=== PATIENT | female | born 1960 | race Caucasian/White ===

== ENCOUNTER 2018-03-04 12:18 | Emergency (ER) | payer MEDICAID, SELFPAY ==
[2018-03-04 12:22] VITALS: BP 159/85; PULSE 99; RESP 16; TEMP 36.6; O2SAT 98
[2018-03-04] MEDS: Ketorolac 15 MG/ML VIAL IVP (12:36)
[2018-03-04] MEDS: Normal Saline 1,000 ML 1000 ML IV (12:37)
[2018-03-04] MEDS: Ondansetron 4 MG/2 ML VIAL IVP (12:37)
--- NOTE | 2018-03-04 12:37 | ED.GENADUL_ITS ---
Discharge Plan Disposition Patient Disposition: HOME Condition: Good Discharge Details Chief Complaint: Abd Prob Clinical Impression: Abdominal pain, Hypokalemia Primary Care Provider: Elayne Mota ED Provider: Jaspreet Liang Home Meds and New Rx's Prescriptions: New ondansetron HCl [Zofran] 4 mg tablet 4 mg PO TID PRN (Reason: nausea and vomiting) 5 Days Qty: 30 RF: 0 Continue simvastatin 20 mg Tablet 20 mg PO QPM RF: 0 lamotrigine 250 mg Tablet Extended Release 24 Hr 250 mg PO ONCE RF: 0 losartan 50 mg Tablet 50 mg PO DAILY RF: 0 lithium carbonate 300 mg Capsule 250 mg PO DAILY RF: 0 Discharge Instructions Instructions: Hypokalemia (ED) Additional Instructions: You need to follow up with your primary care provider next week as scheduled. You should have your potassium rechecked at that time. You also need to inform them of the hepatic cysts and thickened uterus wall as you need follow up imaging Increase your dietary intake of potassium if you have severe worsening pain or persistent vomit return to the emergency department you can take 1000mg tylenol and 600mg ibuprofen every 6 hours for pain as needed Medical Decision Making 57 yo female who has hx of hld, prior tubal ligation, who comes in with right sided abdominal pain. She states it started in the ruq and was intermittent for 3 days and today has been constant and the rlq. Denies fevers or vomit. HAs tenderness without guarding in the rlq and the ruq. Will eval for appendicitis and cholecystitis among other surgical pathology with CT and also eval for hepatitis and pancreatitis pts labs show K of 2.9 otherwise unremarkable, she remains stable, oral replacement ordered, awaiting imaging Imaging shows no acute findings per Dr. Breen, does have some mild inflammatory changes of stomach wall but has no leukocytosis or diarrhea or fevers so do not feel abx indicated. Also has hepatic cysts and thickened endometrium which I told her and she needs to f/u with pcp next week about and have her K rechecked. Return precautions given Differential Diagnosis appendicitis, ovarian cyst, pancreatitis, cholecystitis Imaging Data Radiologic Study: Attestation: I personally reviewed and interpreted this imaging study as follows: Imaging: CT Scan Radiologist's impression: per dr. Breen no significant acute findings, see narraitve in med decision making Lab Data Lab results reviewed: Yes I reviewed the patient's lab results. HPI General Mode of arrival: ambulatory . Date/Time Provider Initiated Documentation: 03/04/18 12:20 . Limitations to Documentation: no limitations . History of Present Illness 57 year old F presents to the emergency department with the chief complaint of abdominal pain, described as moderate, with intensity rated at 6. Quality is described as aching, and is localized to the abdomen. Patient reports no radiation. Patient started experiencing this day(s) (3) and it has been constant. No relieving factors improve symptom(s), No exacerbating factors reported . Patient notes no other symptoms.. Patient did receive the following treatments prior to arrival, none Related Data Home Medications Medication Instructions Recorded Confirmed lamotrigine 250 mg PO ONCE 03/04/18 03/04/18 lithium carbonate 250 mg PO DAILY 03/04/18 03/04/18 losartan 50 mg PO DAILY 03/04/18 03/04/18 ondansetron HCl [Zofran] 4 mg PO TID PRN 5 Days #30 tab 03/04/18 simvastatin 20 mg PO QPM 03/04/18 03/04/18 Previous Rx's Medication Instructions Recorded ondansetron HCl [Zofran] 4 mg PO TID PRN 5 Days #30 tab 03/04/18 Allergies Allergy/AdvReac Type Severity Reaction Status Date / Time No Known Allergies Allergy Unverified 03/04/18 12:25 General Stated Complaint: Abd Prob GRIS: 3 Review of Systems Review of Systems All systems reviewed & are unremarkable except as noted in HPI and below Constitutional Denies chills, Denies fever(s) and Denies weakness ENT Denies change in voice Cardiovascular Denies chest pain and Denies dyspnea Respiratory Denies dyspnea Gastrointestinal Denies vomiting Genitourinary Denies dysuria Musculoskeletal Denies joint swelling Integumentary/Breasts Denies rash Neurologic Denies weakness Psychiatric Denies depression [facility] Social History Smoking/Tobacco Use Status: Current every day Exam Const General: no acute distress Orientation: alert HENMT Head: normal to inspection Ears: external ears normal General nose exam: external nose normal Mouth: moist mucous membranes Eyes General: appearance normal, both eyes and all related structures Neck Neck: normal visual inspection Resp Effort & Inspection: normal respiratory effort and able to speak in complete sentences Cardio Rate: regular rate GI Palpation: soft and tender in the RLQ Skin General skin exam: no rashes or lesions noted Neuro General: alert and oriented x3 Extrem General: normal to inspection Psych Mental Status: mental status grossly normal Course Vital Signs Temperature 36.6 C 03/04/18 12:22 Pulse 99 H 03/04/18 12:22 Respiratory Rate 16 03/04/18 12:22 Blood Pressure 159/85 H 03/04/18 12:22 Pulse Oximetry 98 03/04/18 12:22 Temperature 36.6 C 03/04/18 12:22 Temperature Source Tympanic 03/04/18 12:22 Pulse 99 H 03/04/18 12:22 Respiratory Rate 16 03/04/18 12:22 Respiratory Effort Non-Labored 03/04/18 12:28 Blood Pressure 159/85 H 03/04/18 12:22 Blood Pressure Position Sitting 03/04/18 12:22 Pulse Oximetry 98 03/04/18 12:22 Oxygen Delivery Method Room Air 03/04/18 12:22 Oxygen Flow Rate 0 03/04/18 12:22 Pain Level 5 03/04/18 12:22
[2018-03-04 12:46] LABS: Abs Immature Grans 0.01 k/cumm (0.0-0.09); Absolute Basophil Count 0.02 k/cumm (0.0-0.2); Absolute Eosinophil Count 0.07 k/cumm (0.0-0.7); Absolute Lymphocyte Count 2.88 k/cumm (1.2-3.4); Absolute Monocyte Count 0.51 k/cumm (0.11-0.7); Basophils % 0.3; Eosinophils % 0.9; HCT 40.6 % (36.0-46.0); HGB 13.6 g/dL (12.0-15.5); Immature Grans % 0.1; Mean Corp. HGB Concentration 33.5 g/dL (32.0-36.0); Mean Corpuscular Hemoglobin 31.1 pg (27.0-33.0); Mean Corpuscular Volume 92.7 fL (80-95); Mean Platelet Volume 9.9 fL (8.0-11.0); Monocytes % 6.5; Neutrophils % 55.2; Platelet Count 271 x1000/uL (130-400); RBC 4.38 m/cumm (4.00-5.20); White Blood Cell Count 7.79 k/cumm (4.4-10.8)
--- NOTE | 2018-03-04 12:47 | DI.CT_ITS ---
SYMPTOMS/DIAGNOSIS: RT SIDED ABD PAIN ABDOMINAL AND PELVIC CT: CT examination of the abdomen and pelvis was performed with a bolus infusion of 100 cc's of Omnipaque 350. Images obtained through the lung bases are unremarkable. The liver contains numerous fluid attenuation masses. The largest in the left hepatic lobe measuring roughly 5 cm in greatest diameter and these all have appearance consistent with cysts. The spleen is unremarkable in appearance. No biliary dilatation and the gallbladder is CT normal. There is possible gastric wall thickening in a mostly contracted stomach. Please correlate clinically regarding the possibility of gastritis. Small bowel and colon are unremarkable in appearance. Normal appearance of the appendix. No evidence of diverticulitis. The abdominal aorta and major branches appear normal. The adrenals appear normal bilaterally. The right kidney is unremarkable. No right hydronephrosis or nephrolithiasis. The left kidney contains upper pole calculi which are nonobstructing. No ureteral calcification identified on either side. No abdominal or pelvic adenopathy seen. The [employer] structures appear intact with presumed incidental calcified posterior fibroid. Question endometrial thickening in a postmenopausal patient may be evaluated by pelvic ultrasound. CONCLUSION: 1. Nonobstructing left upper pole renal calculi. 2. Multiple hepatic cysts. 3. Question endometrial thickening in a post menopausal patient, pelvic ultrasound requested for correlation. 4. Question antral gastritis, please correlate clinically.
[2018-03-04 12:52] LABS: ALT 17 U/L (12-78); AST 17 U/L (15-37); Albumin 4.9 g/dL (3.4-5.0); Alkaline Phosphatase 79 U/L (46-116); BUN 17 mg/dL (7-18); Bilirubin, Direct 0.12 mg/dL (0.00-0.20); Bilirubin, Total 0.5 mg/dL (0.2-1.0); CREATININE 0.93 mg/dL (0.55-1.02); Calcium 9.4 mg/dL (8.5-10.1); Chloride 101 mmol/L (98-107); Glucose 90 mg/dL (70-100); Lipase 139 U/L (73-393); Magnesium 2.2 mg/dL (1.8-2.4); PTT Activated 25.3 sec (21.0-31.4); Prothrombin Time 9.8 sec (9.3-10.8); Sodium 141 mmol/L (136-145); Total Protein 8.4 g/dL (6.4-8.2)
[2018-03-04 12:54] LABS: Potassium 2.9 mmol/L (3.5-5.1)
[2018-03-04] MEDS: Omnipaque 350 MG/ML 100 ML BTL IJ (13:49)
[2018-03-04] MEDS: Potassium Chloride 20 MEQ TABCR 40 MEQ PO (14:35)
[2018-03-04 14:44] VITALS: BP 159/85; PULSE 99; RESP 16; TEMP 36.6; O2SAT 98
== END 2018-03-04 14:46 | disposition home or self-care (01) ==
PROVIDERS: Emergency Provider Emergency Medicine; PCP Nurse Practitioner
DX: R10.31 Right lower quadrant pain (principal); E87.6 Hypokalemia
CPT/HCPCS: 36415; 80053; 80076; 83690; 96361; 96374; 96375; 99285; 74177; 83735; 85025; 85610; 85730; 99284; J1885; J2405; J3490

== ENCOUNTER 2018-03-10 12:38 | Outpatient (REF) | payer MEDICAID, SELFPAY ==
[2018-03-10 17:48] LABS: ALT 17 U/L (12-78); AST 16 U/L (15-37); Albumin 4.6 g/dL (3.4-5.0); Alkaline Phosphatase 73 U/L (46-116); Anion Gap 10.1 mmol/L (3-11); BUN 15 mg/dL (7-18); Bilirubin, Total 0.4 mg/dL (0.2-1.0); CO2 28.9 mmol/L (21.0-32.0); CREATININE 0.84 mg/dL (0.55-1.02); Chloride 102 mmol/L (98-107); Glucose 102 mg/dL (70-100); Potassium 3.4 mmol/L (3.5-5.1); Sodium 141 mmol/L (136-145); Total Protein 7.5 g/dL (6.4-8.2)
== END 2018-03-10 12:58 ==
LOC: NCHCN 12:38
PROVIDERS: PCP Nurse Practitioner; Visit Provider Nurse Practitioner
DX: E87.6 Hypokalemia (principal)
CPT/HCPCS: 80053

== ENCOUNTER 2018-03-18 02:38 | Outpatient (CLI) | payer MEDICAID, SELFPAY | END 2018-03-18 02:58 | PROVIDERS: PCP Nurse Practitioner; Visit Provider Nurse Practitioner | DX: R00.2 Palpitations (principal) | CPT/HCPCS: 93225 ==

== ENCOUNTER 2018-03-23 10:56 | Outpatient (CLI) | payer MEDICAID, SELFPAY ==
--- NOTE | 2018-03-23 17:12 | HOLTER_ITS ---
DATE OF DICTATION: March 23, 2018 STUDY INDICATION: Palpitations. REQUESTING PROVIDER: Elaine Upton N.P. FINDINGS: The patient was monitored for 23 hours and 52 minutes. The baseline rhythm was sinus rhythm. Average heart rate 83 bpm, range 60-141 bpm. There were 6 PVC's and 2 PAC's. There was no supraventricular or ventricular tachycardia. There were no pauses greater than 3 seconds. There was no high-degree heart block. There were 3 patient events, none of these events correlated with arrhythmias. FINAL INTERPRETATION: Normal study.
== END 2018-03-23 11:16 ==
PROVIDERS: PCP Nurse Practitioner; Visit Provider Nurse Practitioner
DX: R00.2 Palpitations (principal)
CPT/HCPCS: 93226

== ENCOUNTER 2018-03-31 00:18 | Outpatient (CLI) | payer MEDICAID, SELFPAY ==
--- NOTE | 2018-03-31 13:00 | DI.US_ITS ---
SYMPTOMS/DIAGNOSIS: ENDOMETRIAL THICKENING, R93.89 PELVIC ULTRASOUND: Transabdominal and transvaginal examination. The uterus measures 5.6 cm long x 2.5 cm AP x 3.5 cm transverse. Note is made of a calcified lesion in the posterior body of the uterus, most suggestive of a calcified uterine fibroid. The finding is present on the CT scan of the abdomen and pelvis from 03/04/18. The endometrial stripe is within normal limits at 0.2 cm. There is fluid seen within the endometrial canal. Both ovaries were visualized. They were normal in size and appearance. No free pelvic fluid or hydronephrosis is identified. IMPRESSION: 1. Small amount of fluid seen within the endometrial canal. 2. Calcified uterine fibroid.
== END 2018-03-31 00:38 ==
PROVIDERS: PCP Nurse Practitioner; Visit Provider Nurse Practitioner
DX: R93.89 Abnormal findings on diagnostic imaging of other specified body structures (principal); D25.9 Leiomyoma of uterus, unspecified
CPT/HCPCS: 76830; 76856

== ENCOUNTER 2018-04-05 10:35 | Outpatient (REF) | payer MEDICAID, SELFPAY ==
[2018-04-05 12:17] LABS: Potassium 3.6 mmol/L (3.5-5.1)
== END 2018-04-05 10:55 ==
LOC: NCHCN 10:35
PROVIDERS: PCP Nurse Practitioner; Visit Provider Nurse Practitioner Family
DX: E87.6 Hypokalemia (principal)
CPT/HCPCS: 84132

== ENCOUNTER 2018-05-06 00:27 | Outpatient (CLI) | payer MEDICAID, SELFPAY ==
--- NOTE | 2018-05-06 09:17 | DI.US_ITS ---
SYMPTOM/DIAGNOSIS: RUQ PAIN, R10.11 ABDOMEN ULTRASOUND: Routine examination was performed. The aorta and IVC are unremarkable. The liver is normal in size. There are four simple cysts seen within the liver, the largest is seen in the left lobe and measures 4.6 by 4.9 by 4.1 cm. These were visualized on the CT scan of the abdomen and pelvis from 03/04/18. No solid hepatic masses are seen. The gallbladder, bile ducts, kidneys and spleen are unremarkable. The pancreatic tail was not visualized sonographically. The remainder of the pancreas is unremarkable. There is normal hepatoportal venous flow. IMPRESSION: Multiple hepatic cysts. Otherwise unremarkable abdomen ultrasound.
== END 2018-05-06 00:47 ==
PROVIDERS: PCP Nurse Practitioner; Visit Provider Nurse Practitioner
DX: R10.11 Right upper quadrant pain (principal); K76.89 Other specified diseases of liver
CPT/HCPCS: 76700

== ENCOUNTER 2018-05-13 16:50 | Outpatient (REF) | payer MEDICAID, SELFPAY ==
[2018-05-13 21:49] LABS: Bilirubin Negative (Negative); Blood Small (Negative); Clarity Clear; Glucose Negative (Negative); Ketones Negative (Negative); Leukocyte Esterase Negative (Negative); Nitrite Negative (Negative); Urobilinogen 0.2 EU/dL (Up TO 0.2); pH 6.5 (5-8)
[2018-05-13 22:04] LABS: Bacteria Negative HPF (Negative); C & S Indicated? No; Casts Negative LPF (Negative); Crystals Negative HPF (Negative); Epithelial Cells Few HPF (Negative); Mucus Negative (Negative); WBC Negative HPF (0-5)
== END 2018-05-13 17:10 ==
LOC: NCHCN 16:50
PROVIDERS: PCP Nurse Practitioner; Visit Provider Nurse Practitioner
DX: R31.9 Hematuria, unspecified (principal)
CPT/HCPCS: 81003; 81015

== ENCOUNTER 2018-06-10 09:26 | Day surgery (SDC) | payer MEDICAID, SELFPAY ==
[2018-06-10 09:45] VITALS: BP 148/89; PULSE 105; RESP 20; TEMP 36.7; O2SAT 100
[2018-06-10] MEDS: Lactated Ringers 1,000 ML 80 ML IV (10:06)
--- NOTE | 2018-06-10 11:07 | DI.RAD_ITS ---
SYMPTOMS/DIAGNOSIS: MICROSCOPIC HEMATURIA RETROGRADE IN THE OR: Fluoroscopy Time: 19.8 sec Fluoroscopy was utilized by Dr. Hopkins during the retrograde evaluation of the renal collecting system. Please refer to the procedure report for complete details.
[2018-06-10] MEDS: Lidocaine 2% Jelly 6 ML SYR (11:42)
[2018-06-10] MEDS: Omnipaque 300 MG/ML 50 ML BTL (11:43)
--- NOTE | 2018-06-10 11:59 | W.PM.DSUDISC ---
Discharge Plan Disposition Patient Disposition: HOME Condition: Stable Discharge Details Reason For Visit: microscopic hematuria Attending Provider: Yuriy Hopkins Primary Care Provider: Elaine Upton Home Meds and New Rx's Prescriptions: No Action lamotrigine 300 mg tablet extended release 24hr 300 mg PO DAILY RF: 0 losartan 50 mg tablet 50 mg PO DAILY RF: 0 bisacodyl [Dulcolax (bisacodyl)] 5 mg tablet,delayed release (DR/EC) 5 mg PO ONCE Qty: 4 RF: 0 polyethylene glycol 3350 17 gram/dose powder 238 g PO ONCE Qty: 238 RF: 0 polyethylene glycol 3350 [Miralax] 17 gram/dose powder 17 gm PO DAILY PRNRF: 0 omeprazole 40 mg capsule,delayed release(DR/EC) 40 mg PO DAILY RF: 0 albuterol sulfate [ProAir HFA] 90 mcg/actuation HFA aerosol inhaler 2 puff IH Q6H PRNRF: 0 fluticasone-salmeterol [Advair HFA] 230-21 mcg/actuation HFA aerosol inhaler 2 puff IH BID RF: 0 simvastatin 20 mg Tablet 20 mg PO QPM RF: 0 acetaminophen [Tylenol Extra Strength] 500 mg Tablet 500 mg PO PRN PRNRF: 0 Discharge Instructions Additional Instructions: F/U yearly for urinalysis (can be done at PCP office) Activity:: Activity as Tolerated Diet:: As Tolerated Discharge Orders Discharge Orders: Discharge Order (Routine); Ordered 06/10/18 Ordered By: Yuriy Hopkins
[2018-06-10 12:30] VITALS: BP 134/84; PULSE 82; RESP 18; TEMP 35.4; O2SAT 99
--- NOTE | 2018-06-10 16:34 | ROE_ITS ---
DATE OF OPERATION: June 10, 2018 PREOPERATIVE DIAGNOSIS: Microscopic hematuria. POSTOPERATIVE DIAGNOSIS: Microscopic hematuria. PROCEDURE: Cystoscopy with bilateral retrograde pyelogram. SURGEON: Yuriy Hopkins M.D. ANESTHESIA: General with local. COMPLICATIONS: None. HISTORY: This is a 58-year-old woman who has been identified as having microscopic hematuria. She u nderwent a CT scan with contrast. The CT demonstrated nonobstructing kidney stones on the left. We were not able to visualize the ureters adequately on the CT scan so she presents for cystoscopy and r etrograde pyelogram to complete her hematuria workup. OPERATIVE REPORT: The patient was brought to the Operating Room on 06/10/18. After successful induct ion of general anesthesia, she was placed in the dorsal lithotomy position. Her genitalia was preppe d and draped. Two percent Xylocaine jelly was instilled into the urethra to act as a local anestheti c. A 22 Iranian rigid cystoscope was passed through the urethra into the bladder. The bladder was inspec pankaj with a 30-degree lens. The base of the bladder had descended, consistent with a cystocele. Both ureteral orifices appeared normal. I was unable to cannulate the right ureteral orifice with an access catheter so I passed a G lidewire through the scope into the right ureteral orifice. I was then able to advance the access ca theter over the wire. With the access catheter position in the distal ureter, we injected Omnipaque under fluoroscopic guid ance. This outlined the ureters and collecting system on the right. No persistent filling defects w ere seen. On the left side, I was able to pass the access catheter into the ureteral orifice directly. Again, the left ureter and collecting system appeared normal. Both sides were monitored and drainage films showed both sides emptied appropriately. The remainder of the bladder was then inspected using both 30- and 70-degree lenses. No papillary or nodular lesions were seen. No stones were found within the bladder. Based on today's examination, there is no significant uropathology that would account for her microsc opic hematuria. The current [employer] [employer] recommendation is a yearly urinalysis an d a repeat workup in three to five years if the hematuria persists. cc: Elaine Upton N.P.
== END 2018-06-10 12:44 | disposition home or self-care (01) ==
PROVIDERS: PCP Nurse Practitioner; Visit Provider Urology
PROC: (CPT 74450; principal; 2018-06-10 11:15)
DX: R31.29 Other microscopic hematuria (principal); K21.9 Gastro-esophageal reflux disease without esophagitis; J44.9 Chronic obstructive pulmonary disease, unspecified; F17.210 Nicotine dependence, cigarettes, uncomplicated; I10 Essential (primary) hypertension
CPT/HCPCS: 52005; 74420; J0690; J1885; J2250; J2405; Q9967

== ENCOUNTER 2018-07-09 09:03 | Day surgery (SDC) | payer MEDICARE, MEDICAID, SELFPAY ==
[2018-07-09 09:56] VITALS: BP 138/86; PULSE 89; RESP 18; TEMP 36.6; O2SAT 99
[2018-07-09] MEDS: Lactated Ringers 1,000 ML 80 ML IV ×2 (10:19→11:47)
[2018-07-09] MEDS: Lidocaine 2% Viscous 15 ML CUP (11:35)
--- NOTE | 2018-07-09 11:41 | HPE_ITS ---
Date of service: 07/09/18 Time of Service: 11:30 Assessment and Plan (1) Dysphagia: Current visit: No Status: Acute pt is here today for egd and ce. Informed consent is obtained for the procedural (explained in simple layman's terms that the pt. and/or family could understand) explaining risks vs benefits and alternatives to the procedure and consequences if we do not do the procedure and need/rational for the procedure. Risks include but are not limited to: bleeding, infection, perforation of esophagus, stomach, colon, small intestines, bronchus or trachea, or PTX. This would necessitate emergency surgery to repair the damage w/ possible ostomy; and other associated complications w/ the required surgery. Also complications of anesthesia including aspiration, OH/CVA/. pt tolerated prep and is acceptable risk for anesthesia Qualifiers: Dysphagia type: unspecified Qualified Code(s): R13.10 - Dysphagia, unspecified (2) Encounter for screening colonoscopy: Current visit: No Status: Acute as aboe History of Present Illness Chief Complaint: gerd/ce Consults Consult date: 07/09/18 Narrative: pt has long standing hx of gerd and has been on prilosec for many yrs. she has tried many PPI's and H2 blockers nad they do not work for her. she had taken an OTC antiacid that works. + reflux- no vomiting. poor dentition. she still smokes and she knows this make it worse. she is not taking prilosec. +2 cups coffee per day. +energy drinks throurgh out the day. feel like lump in throat. no abdom pain. tolerated prep. no unexplained wt loss or bleeding. Review of Systems Review of Systems All systems reviewed & are unremarkable except as noted in HPI and below Constitutional Reports as per HPI, Reports system reviewed and no additional complaints, except as docu, Denies anorexia, Denies chills, Denies difficulty sleeping, Denies fatigue, Denies headache(s), Denies lethargy, Denies malaise, Denies poor appetite, Denies weakness, Denies weight gain and Denies weight loss Eyes Reports as per HPI, Reports system reviewed and no additional complaints, except as docu and Denies change in vision ENT Reports system reviewed and no additional complaints, except as docu, Reports as per HPI, Denies change in voice, Denies dental pain, Denies dysphagia, Denies dizziness, Denies facial pain, Denies headache(s) and Denies odynophagia Comments: poor dentiont Cardiovascular Reports as per HPI, Reports system reviewed and no additional complaints, except as docu, Denies chest pain, Denies chest pain with activity, Denies syncope, Denies leg edema and Denies dyspnea Comments: no CP or SOB Respiratory Reports as per HPI, Reports system reviewed and no additional complaints, except as docu, Denies chest congestion, Denies cough, Denies pain with cough and Denies dyspnea Comments: +chronic smokers cough. no wheeze Gastrointestinal Reports as per HPI, Reports system reviewed and no additional complaints, except as docu, Denies abdominal pain, Denies bloating, Denies change in bowel habits, Denies change in stool character, Denies constipation, Denies cramping, Denies dysphagia, Denies early satiety, Denies heartburn, Denies diarrhea, Denies nausea, Denies odynophagia and Denies vomiting Comments: tolerated prep and cl yellow stool Musculoskeletal Reports system reviewed and no additional complaints, except as docu, Reports as per HPI, Denies abnormal gait, Denies arthralgias and Denies muscle weakness Integumentary/Breasts Reports system reviewed and no additional complaints, except as docu, Reports as per HPI, Denies changing lesions, Denies new lesions and Denies jaundice Neurologic Reports system reviewed and no additional complaints, except as docu, Reports as per HPI, Denies abnormal speech, Denies abnormal gait, Denies dizziness, Denies syncope, Denies headache(s), Denies memory loss and Denies weakness Psychiatric Reports system reviewed and no additional complaints, except as docu, Reports as per HPI, Denies change in appetite and Denies memory loss Endocrine Denies fatigue, Denies polydipsia and Denies polyuria Hematologic/Lymphatic Reports system reviewed and no additional complaints, except as docu, Denies easy bleeding and Denies easy bruising Allergic/Immunologic Denies system reviewed and no additional complaints, except as docu, Reports as per HPI and Denies urticaria [facility] Medical History Bipolar 1 disorder (Acute) Dizziness (Acute) Dysphagia (Acute) Endometrial thickening on ultrasound (Acute) Hematuria (Acute) Hepatic cyst (Acute) Hyperlipemia (Acute) Hypokalemia (Acute) Low back pain (Acute) Palpitations (Acute) RUQ pain (Acute) Restless legs (Acute) Scoliosis (Acute) COPD (chronic obstructive pulmonary disease) (Chronic) GERD (gastroesophageal reflux disease) (Chronic) Hypertension (Chronic) Metabolic syndrome X (Chronic) Post traumatic stress disorder (Chronic) Tobacco use (Chronic) Surgical History Hx of cystoscopy (Acute) Social History Smoking/Tobacco Use Status: Current every day Alcohol Intake: former Drug use: Occasionally Substance use type: marijuana Do you feel safe in your relationship?: Yes Meds Home Medications Medication Instructions Recorded Confirmed Type simvastatin 20 mg PO QPM 03/04/18 07/09/18 History albuterol sulfate HFA 90 2 puff IH Q6H PRN 03/24/18 06/29/18 History mcg/actuation aerosol inhaler fluticasone propionate-salmeterol 2 puff IH BID 03/24/18 07/09/18 History 230 mcg-21 mcg/actuation HFA inhaler omeprazole 40 mg capsule,delayed 40 mg PO DAILY 05/19/18 07/09/18 History release polyethylene glycol 3350 17 17 gm PO DAILY PRN 05/19/18 06/29/18 History gram/dose oral powder bisacodyl 5 mg tablet,delayed 5 mg PO ONCE #4 tab 06/04/18 06/04/18 Rx release lamotrigine ER 300 mg 300 mg PO DAILY 06/04/18 07/09/18 History tablet,extended release 24 hr losartan 50 mg tablet 50 mg PO DAILY 06/04/18 07/09/18 History polyethylene glycol 3350 17 238 g PO ONCE #238 gm 06/04/18 06/04/18 Rx gram/dose oral powder acetaminophen [Tylenol Extra 500 mg PO PRN PRN 06/10/18 07/09/18 History Strength] Allergies Allergy/AdvReac Type Severity Reaction Status Date / Time No Known Allergies Allergy Verified 07/09/18 09:50 Exam Const General: cooperative, healthy appearing, comfortable, no acute distress, well developed and well groomed Nutritional Appearance: average body habitus and well nourished Orientation: alert, awake and oriented x3 HENMT Head: normal to inspection, normocephalic and atraumatic Ears: hearing grossly normal bilaterally and external ears normal General nose exam: external nose normal Face and sinus: normal facial exam and sinuses nontender Mouth: oral mucosae normal, lip normal, tongue normal and moist mucous membranes Teeth and gingiva: poor dentition Eyes General: appearance normal, both eyes and all related structures Conjunctivae: conjunctivae normal Sclera: sclerae normal Pupils: PERRL Neck Neck: normal visual inspection and full ROM Chest Chest: normal inspection of the chest Resp Effort & Inspection: normal respiratory effort, able to speak in complete sentences, no cough, no nasal flaring, not tachypneic and no use of accessory muscles Auscultation: clear to auscultation bilaterally, no rales, no rhonchi and no wheezes Cardio Jugular venous pressure: no JVD Rate: regular rate Rhythm: regular rhythm GI Inspection: normal to inspection, no edema and non-distended Palpation: soft, no masses, nontender and No ascites Auscultation: normal bowel sounds Other: post sx changes noted Skin General skin exam: no rashes or lesions noted Trauma: no lacerations or abrasions Neuro General: alert, oriented x3, oriented, gait normal, moves all extremities, no focal motor deficits and CN's II-XI intact bilaterally Cognition: normal cognition Speech: speech normal Gait: normal gait Motor: muscle tone normal throughout Extrem General: normal to inspection, full ROM and no clubbing, cyanosis or edema Psych Appearance: grossly normal and well kempt Mental Status: mental status grossly normal Speech and Movement: speech and movement normal Affect: normal affect Results Last Vital Signs Temp 36.6 C 07/09/18 09:56 Pulse 89 07/09/18 09:56 Resp 18 07/09/18 09:56 BP 138/86 07/09/18 09:56 Pulse Ox 99 07/09/18 09:56
--- NOTE | 2018-07-09 11:50 | STOM_PTH ---
PATIENT: Kacey Field LOC: HIRAL U#:[id number] AGE/SX: 58/F ROOM: RE07/09/[address]: Kanika Jaeger : 1960 BED: DIS: 07/09/2018 SPEC #: [id number] RECD: 07/09/18 15:33 STATUS: CHHAYA RE #: [id number] LINDA: 07/09/18 11:[address]: Kanika Jaeger DEPT: Surgical Specimen RECD BY: Ivy Samuels ENTERED: 07/09/18 15:36 SP TYPE: STOMACH OTHR DR: Elaine Upton Tissues: 1 - BIOPSY BOWEL 2 - STOMACH BIOPSY 3 - STOMACH BIOPSY 4 - ESOPHAGUS BIOPSY 5 - ESOPHAGUS BIOPSY 6 - BIOPSY BOWEL 7 - BIOPSY BOWEL Procedures: GROSS AND MICRO LEVEL 4 Comments: [id number]
[2018-07-09] MEDS: Glycopyrrolate 0.2 MG/1 ML VIAL (12:05)
--- NOTE | 2018-07-09 12:44 | W.PM.ENDDOP ---
Date of service: 07/09/18 Time of Service: 12:44 Endoscopy Report DATE OF PROCEDURE: 07/09/18 PRE-OP DIAGNOSIS: gerd/CRC screen POST-OP DIAGNOSIS: other (nl egd) PROCEDURE: divterc polyps x3 ANESTHESIA: GETA ESTIMATED BLOOD LOSS: 5 COMPLICATIONS: None DISPOSITION: PACU INDICATIONS: med refractory gerd CRC screen PREP: Miralax COLONOSCOPY RETRACTION TIME: 15 mins FINDINGS: as above PROCEDURE DESCRIPTION: After informed consent was obtained the patient was take to the procedure room and placed in a supine position. Monitors were applied and a time out was done. The patients name, date of , procedure type, allergies to medications and metal in their body was reviewed. A bite block was placed and the patient was sedated. Once sedated and comfortable the gastroscope was advanced through the oropharynx which was grossly normal into the esophagus. The proximal and mid-esophagus were nl. In the distal esophagus there was nl. The scope was advanced into the stomach and through the pylorus into the 3rd portion of the duodenum. The duodenum was noted to be nl. Biopsies were done. all specimens were retreived and no bleeding was noted. The scope was retracted back into the stomach and biopsies were done to rule out H. pylori. There were no ulcers. The scope was retroflexed. The cardia and fundus were noted to be normal. There not a hiatal hernia noted. The scope was retracted back into the esophagus and biopsies were done of the GE junction to rule out Olvera's. The Z line was regular. The GE junction was at 38 cm. The scope was removed and the patient was woken up and taken back to [facility] in stable condition. Follow up: 2-3 wks for bx results After informed consent was obtained the patient was taken to the procedure room and placed in a left decubitous position. Monitors were applied and a time out was done. The patients name, date of , procedure, allergies to medications and metal in their body was reviewed. The patient was then sedated. Once sedated and comfortable a rectal exam was done. External exam was normal. Internal exam revealed a normal sphincter tone and no palpable masses. The scope was then introduced and retrofelexed. no internal hemorrhoids were identified. The scope was then advanced to the cecum without difficulty. The TI and appendiceal orifice were identified. The prep was adequate. There was a medium size polyp in cecum. This was removed in mult. bites w/ cold forcepts. All specimen retreived and no bleeding noted. The scope was then slowly retracted over 15 minutes back into the rectum. Polyps were removed at cecumx1. this was a flat polyp about 1cm. removed in mult bites. all specimen retrieved no bleeding noted. There were x2 polyps at 20cm. removed w/ a cold forecept. She has moderate diverticular dx. no active bleeding or infecton. grade I int. hermorrhoids. The scope was removed and the patient was woken up and taken back to [facility] day surgery in stable condition. The patient tolerated the procedure well and there were no immediate complications. Follow up: The patient should follow up in aprox 3 years time- path pd. unless they develop changes in bowel habits or other new gastrointestinal complaints.
--- NOTE | 2018-07-09 12:48 | W.PM.DSUDISC ---
Discharge Plan Disposition Patient Disposition: HOME Condition: Good Discharge Details Reason For Visit: egd and colon Attending Provider: Kanika Jaeger Primary Care Provider: Elaine Upton Home Meds and New Rx's Prescriptions: Continued lamotrigine 300 mg tablet extended release 24hr 300 mg PO DAILY RF: 0 losartan 50 mg tablet 50 mg PO DAILY RF: 0 bisacodyl [Dulcolax (bisacodyl)] 5 mg tablet,delayed release (DR/EC) 5 mg PO ONCE Qty: 4 RF: 0 polyethylene glycol 3350 17 gram/dose powder 238 g PO ONCE Qty: 238 RF: 0 polyethylene glycol 3350 [Miralax] 17 gram/dose powder 17 gm PO DAILY PRNRF: 0 omeprazole 40 mg capsule,delayed release(DR/EC) 40 mg PO DAILY RF: 0 albuterol sulfate [ProAir HFA] 90 mcg/actuation HFA aerosol inhaler 2 puff IH Q6H PRNRF: 0 fluticasone propion-salmeterol [Advair HFA] 230-21 mcg/actuation HFA aerosol inhaler 2 puff IH BID RF: 0 simvastatin 20 mg Tablet 20 mg PO QPM RF: 0 acetaminophen [Tylenol Extra Strength] 500 mg Tablet 500 mg PO PRN PRNRF: 0 Discharge Instructions Additional Instructions: Findings:egd- normal biopsy taken colon: polyps x3 diverticula Follow up: 2-3 wks Please call if you develop: fevers >101.5 Nausea or Vomiting Abdominal pain that is not transient DAY SURGERY UNIT POST COLONOSCOPY INSTRUCTIONS 1. Because there will be medication in your system for the next 24 hours, you may feel a little sleepy. Your coordination will be affected. Therefore: a. Do not drive or operate dangerous equipment for 24 hours. b. Do not drink alcohol beverages for 24 hours (not even beer). c. Plan to go home and rest for the day. 2. Generally there are no restrictions on your activity after a day or so has gone by, but you may feel a bit fatigued for a few days. 3 After you arrive home you may have a light meal and return to a normal diet as you can tolerate it without feeling sick to your stomach. 4. After surgery, you may feel pain or discomfort. This should be only transient, but if it persists please contact your doctor. 5. If there are any questions regarding the findings of your procedure, please feel free to contact your doctor. 6. If you are unable to contact your doctor with a problem, contact the hospital at [phone]. 7. Continue all your regular medications unless directed otherwise. I understand the above instructions and have no questions. Signature of Patient or Responsible Adult Escort Date/Time Name of Responsible Adult Escort Signature of Nurse Date/Time Activity:: no heavy lifting or strenuous acitivity x 24 hrs Diet:: low fiber x 3 days. Than transition to high fiber diet DS: Diagnosis Discharge Diagnosis (1) Dysphagia: Status: Acute (2) Encounter for screening colonoscopy: Status: Acute
[2018-07-09 13:20] VITALS: BP 155/85; PULSE 103; RESP 18; TEMP 36.8; O2SAT 98
== END 2018-07-09 13:50 | disposition home or self-care (01) ==
PROVIDERS: PCP Nurse Practitioner; Visit Provider Surgery
PROC: (CPT 45380; principal; 2018-07-09 10:30)
DX: Z12.11 Encounter for screening for malignant neoplasm of colon (principal); D12.0 Benign neoplasm of cecum; K63.5 Polyp of colon; K57.30 Diverticulosis of large intestine without perforation or abscess without bleeding; K21.9 Gastro-esophageal reflux disease without esophagitis; K21.0 Gastro-esophageal reflux disease with esophagitis; K31.89 Other diseases of stomach and duodenum; J44.9 Chronic obstructive pulmonary disease, unspecified; I10 Essential (primary) hypertension
CPT/HCPCS: 45380; 43239; 88305; NC

== ENCOUNTER 2018-07-10 07:29 | Emergency (ER) | payer MEDICARE, MEDICAID, SELFPAY ==
[2018-07-10] VITALS (39 sets, daily range): BP systolic 126–151; BP diastolic 62–109; PULSE 67–102; RESP 6–28; TEMP 36.7; O2SAT 96–100
[2018-07-10 08:47] LABS: Abs Immature Grans 0.01 k/cumm (0.0-0.09); Absolute Basophil Count 0.01 k/cumm (0.0-0.2); Absolute Eosinophil Count 0.08 k/cumm (0.0-0.7); Absolute Lymphocyte Count 1.77 k/cumm (1.2-3.4); Absolute Monocyte Count 0.53 k/cumm (0.11-0.7); Basophils % 0.1; Eosinophils % 0.9; HCT 35.8 % (36.0-46.0); HGB 12.5 g/dL (12.0-15.5); Immature Grans % 0.1; Lymphocytes % 20.1; Mean Corp. HGB Concentration 34.9 g/dL (32.0-36.0); Mean Corpuscular Hemoglobin 29.7 pg (27.0-33.0); Mean Platelet Volume 9.7 fL (8.0-11.0); Neutrophils % 72.8; Platelet Count 285 x1000/uL (130-400); RBC 4.21 m/cumm (4.00-5.20); RBC Distribution Width 12.8 % (11.7-14.6)
--- NOTE | 2018-07-10 08:56 | ED.GENADUL_ITS ---
Discharge Plan Disposition Patient Disposition: HOME Condition: Improving Discharge Details Chief Complaint: GI Bleed Clinical Impression: Rectal bleeding, S/P colonoscopic polypectomy, Hypokalemia Primary Care Provider: Elaine Upton ED Provider: Tg Aguirre Home Meds and New Rx's Prescriptions: Continued lamotrigine 300 mg tablet extended release 24hr 300 mg PO DAILY RF: 0 losartan 50 mg tablet 50 mg PO DAILY RF: 0 bisacodyl [Dulcolax (bisacodyl)] 5 mg tablet,delayed release (DR/EC) 5 mg PO ONCE Qty: 4 RF: 0 polyethylene glycol 3350 17 gram/dose powder 238 g PO ONCE Qty: 238 RF: 0 polyethylene glycol 3350 [Miralax] 17 gram/dose powder 17 gm PO DAILY PRNRF: 0 omeprazole 40 mg capsule,delayed release(DR/EC) 40 mg PO DAILY RF: 0 albuterol sulfate [ProAir HFA] 90 mcg/actuation HFA aerosol inhaler 2 puff IH Q6H PRNRF: 0 fluticasone propion-salmeterol [Advair HFA] 230-21 mcg/actuation HFA aerosol inhaler 2 puff IH BID RF: 0 simvastatin 20 mg Tablet 20 mg PO QPM RF: 0 acetaminophen [Tylenol Extra Strength] 500 mg Tablet 500 mg PO PRN PRNRF: 0 Discharge Instructions Instructions: Rectal Bleeding (ED), Hypokalemia (ED) Additional Instructions: Drink plenty of fluids and get plenty of rest. Supplement your diet with foods that are high in potassium for the next few days. No aspirin or NSAIDs such as Motrin for the next 10 days. Follow-up with surgery for reevaluation as indicated. Return immediately to the emergency department any worsening or new concerning symptoms. Discharge Data Discharge Date/Time-TO BE ENTERED AT DEPARTURE: 07/10/18 11:29 Discharge Physician: Tg Aguirre Medical Decision Making 50-year-old female 1 day status post endoscopy and colonoscopy who presents with left lower quadrant intermittent achy abdominal pain and 2 episodes of bright red rectal bleeding this morning. Intermittent dizziness upon standing. Review of scope procedure from yesterday with surgery notes that she had small internal hemorrhoids, moderate diverticular disease, and multiple polyps removed. Vitals within normal limits. Patient appears nontoxic. Her abdomen is soft, and tender in the left lower quadrant. Rectal exam notes normal tone, no external hemorrhoids, with maroon colored stool, guaiac positive. Will place an IV, labs, fluids and call surgery. 0845 --discussed with surgery on-call Dr. Jaeger who performed pt's endoscopies yesterday -bleeding likely due to polypectomy. Recommends a flat and upright abdominal x-ray. No recommendation for CT scan at this time. If patient feels comfortable with going home, that could be a reasonable plan if workup negative, but if she would prefer admission can observe overnight. 1030 --labs and imaging reviewed. Normal hemoglobin. Normal white blood cell count. Potassium 3. Abdominal x-ray negative. Discussed with patient and she would prefer to go home. She drank and ate something and ambulated and denied any dizziness and is requesting to go home. K Dur ordered but patient declined this stating she has chronic difficulty with swallowing pills due to her GERD. K Olesya given instead. 1045 --discussed with Dr. Jaeger -notified of negative workup and that patient feels better and is requesting to go home. Recommended to hold aspirin and Motrin for 10 days and to return if worse. Patient instructed to drink plenty of fluids, supplement her diet with foods high in potassium or take her potassium pills that she has at home as directed. She is instructed to follow-up with surgery as indicated and return here at any time if worse. Medical Records Medical records reviewed: Yes I reviewed the patient's medical records. Imaging Data Radiologic Study: Radiologist's impression: XR Abdomen, 2 Views EXAM DATE/TIME: 07/10/2018 9:06 AM FINDINGS: Gastrointestinal tract: Normal. No bowel dilation. Intraperitoneal space: Normal. No free air. Vasculature: Calcification of the abdominal aorta and/or iliac arteries consistent with atherosclerotic vessel disease. One or more calcified pelvic phleboliths. Bones/joints: Levoscoliosis. IMPRESSION: No acute findings. Lab Data Lab results reviewed: Yes I reviewed the patient's lab results. Laboratory Tests Range/Units 07/10/18 07/10/18 08:35 08:35 WBC (4.4-10.8) k/cumm 8.80 RBC (4.00-5.20) m/cumm 4.21 Hgb (12.0-15.5) g/dL 12.5 Hct (36.0-46.0) % 35.8 L MCV (80-95) fL 85.0 MCH (27.0-33.0) pg 29.7 MCHC (32.0-36.0) g/dL 34.9 RDW (11.7-14.6) % 12.8 Plt Count (130-400) x1000/uL 285 MPV (8.0-11.0) fL 9.7 Immature Gran % 0.1 Neutrophils % 72.8 Lymphocytes % 20.1 Monocytes % 6.0 Eosinophils % 0.9 Basophils % 0.1 Absolute Neutrophils (1.2-6.7) k/cumm 6.40 Absolute Lymphocytes (1.2-3.4) k/cumm 1.77 Absolute Monocytes (0.11-0.7) k/cumm 0.53 Absolute Eosinophils (0.0-0.7) k/cumm 0.08 Absolute Basophils (0.0-0.2) k/cumm 0.01 Sodium (136-145) mmol/L 142 Potassium (3.5-5.1) mmol/L 3.0 L Chloride (98-107) mmol/L 105 Carbon Dioxide (21.0-32.0) mmol/L 27.7 Anion Gap (3-11) mmol/L 9.3 BUN (7-18) mg/dL 20 H Creatinine (0.55-1.02) mg/dL 0.74 Estimated GFR/1.73 m2 (mL/min/1.73m2) >= 60.00 Glucose (70-100) mg/dL 110 H Calcium (8.5-10.1) mg/dL 8.5 Total Bilirubin (0.2-1.0) mg/dL 0.4 AST (15-37) U/L 10 L ALT (12-78) U/L 10 L Alkaline Phosphatase (46-116) U/L 81 Total Protein (6.4-8.2) g/dL 6.5 Albumin (3.4-5.0) g/dL 3.6 ECG Data Attestation: I personally reviewed and interpreted this ECG (s) as follows: Interpretation: rate of 77, sinus, no acute ST elevation or depression, QTc 471, QRS 88. HPI General Mode of arrival: ambulatory . Date/Time Provider Initiated Documentation: 07/10/18 08:10 . Limitations to Documentation: no limitations . Information obtained by: patient . HPI Narrative: Patient is a 50-year-old female who presents to the ED with a complaint of left lower quadrant abdominal pain and rectal bleeding this morning. Patient had a colonoscopy and endoscopy done here yesterday for complaint of GERD and she had polyps removed. Patient states she felt some hot and cold chills last night. Patient states she awoke this morning and felt an urge to use the bathroom and she had an episode of watery brown diarrhea. Patient states this was followed by 2 episodes of bright red rectal bleeding which filled the toilet 2 times. She denies any rectal pain. She states her abdominal pain is intermittent aching but denies any at present. She admits to dizziness upon getting up but denies any when laying down. She last ate yesterday. She denies any known fever, nausea, vomiting, chest pain or shortness of breath. Related Data Home Medications Medication Instructions Recorded Confirmed simvastatin 20 mg PO QPM 03/04/18 07/10/18 albuterol sulfate HFA 90 2 puff IH Q6H PRN 03/24/18 07/10/18 mcg/actuation aerosol inhaler fluticasone propionate-salmeterol 2 puff IH BID 03/24/18 07/10/18 230 mcg-21 mcg/actuation HFA inhaler omeprazole 40 mg capsule,delayed 40 mg PO DAILY 05/19/18 07/10/18 release polyethylene glycol 3350 17 17 gm PO DAILY PRN 05/19/18 07/10/18 gram/dose oral powder bisacodyl 5 mg tablet,delayed 5 mg PO ONCE #4 tab 06/04/18 07/10/18 release lamotrigine ER 300 mg 300 mg PO DAILY 06/04/18 07/10/18 tablet,extended release 24 hr losartan 50 mg tablet 50 mg PO DAILY 06/04/18 07/10/18 polyethylene glycol 3350 17 238 g PO ONCE #238 gm 06/04/18 07/10/18 gram/dose oral powder acetaminophen [Tylenol Extra 500 mg PO PRN PRN 06/10/18 07/10/18 Strength] Previous Rx's Medication Instructions Recorded bisacodyl 5 mg tablet,delayed 5 mg PO ONCE #4 tab 02/15/19 release polyethylene glycol 3350 17 238 g PO ONCE #238 gm 06/04/18 gram/dose oral powder Allergies Allergy/AdvReac Type Severity Reaction Status Date / Time No Known Allergies Allergy Verified 07/10/18 07:36 General Stated Complaint: GI Bleed GRIS: 2 Review of Systems Review of Systems All systems reviewed & are unremarkable except as noted in HPI and below Constitutional Reports as per HPI, Denies chills and Denies fever(s) Eyes Denies blurry vision ENT Reports dizziness, Denies sore throat and Denies throat swelling Cardiovascular Denies chest pain and Denies dyspnea Respiratory Denies cough and Denies dyspnea Gastrointestinal Reports abdominal pain, Reports hematochezia, Denies diarrhea and Denies vomitin g Genitourinary Denies hematuria and Denies dysuria Musculoskeletal Denies back pain and Denies numbness Integumentary/Breasts Denies lesions and Denies rash Neurologic Reports dizziness, Denies focal weakness and Denies numbness Allergic/Immunologic Denies throat swelling PFS Medical History Bipolar 1 disorder (Acute) Dizziness (Acute) Dysphagia (Acute) Endometrial thickening on ultrasound (Acute) Hematuria (Acute) Hepatic cyst (Acute) Hyperlipemia (Acute) Hypokalemia (Acute) Low back pain (Acute) Palpitations (Acute) RUQ pain (Acute) Restless legs (Acute) Scoliosis (Acute) COPD (chronic obstructive pulmonary disease) (Chronic) GERD (gastroesophageal reflux disease) (Chronic) Hypertension (Chronic) Metabolic syndrome X (Chronic) Post traumatic stress disorder (Chronic) Tobacco use (Chronic) Surgical History Hx of cystoscopy (Acute) Social History Smoking/Tobacco Use Status: Current every day Tobacco Type: cigarettes Smoking cigarettes per day: 10 Alcohol Intake: never Drug use: Occasionally Substance use type: marijuana Do you feel safe at home: Yes Do you feel safe in your relationship?: Yes Exam Const General: cooperative, healthy appearing and no acute distress HENMT Head: normal to inspection Face and sinus: normal facial exam Eyes General: appearance normal, both eyes and all related structures EOM: EOM intact bilaterally Neck Neck: normal visual inspection and No submandibular swelling Lymphatic: no lymphadenopathy noted Chest Chest: normal inspection of the chest and no tenderness Resp Effort & Inspection: normal respiratory effort and able to speak in complete sentences Auscultation: clear to auscultation bilaterally Cardio Rate: regular rate Rhythm: regular rhythm GI Inspection: normal to inspection Palpation: soft, not firm, not rigid and tender in the LLQ Auscultation: normal bowel sounds Skin General skin exam: no rashes or lesions noted Neuro General: alert, awake and oriented x3 Cognition: normal cognition Speech: speech normal Motor: muscle tone normal throughout Sensory Exam: no sensory deficits noted Extrem General: normal to inspection, full ROM and no edema Psych Appearance: grossly normal Mental Status: mental status grossly normal Speech and Movement: speech and movement normal Affect: normal affect Course Vital Signs Temperature 98.1 F 07/10/18 07:30 Pulse 88 07/10/18 07:30 Respiratory Rate 15 07/10/18 07:30 Blood Pressure 132/81 07/10/18 07:30 Pulse Oximetry 100 07/10/18 07:30 Temperature 98.1 F 07/10/18 07:30 Temperature Source Temporal Artery Scan 07/10/18 07:30 Pulse 67 07/10/18 08:32 Pulse 76 07/10/18 08:32 Respiratory Rate 13 07/10/18 08:32 Respiratory Effort Non-Labored 07/10/18 07:34 Blood Pressure 141/63 H 07/10/18 08:32 Blood Pressure Mean 81 07/10/18 08:32 Blood Pressure Position Supine 07/10/18 07:30 Pulse Oximetry 99 07/10/18 08:32 Oxygen Delivery Method Room Air 07/10/18 07:30 Oxygen Flow Rate 0 07/10/18 07:30 Pain Level 1 07/10/18 07:30 Lab/Test Results Lab/Test Results: Laboratory Tests Range/Units 07/10/18 08:35 WBC (4.4-10.8) k/cumm 8.80 RBC (4.00-5.20) m/cumm 4.21 Hgb (12.0-15.5) g/dL 12.5 Hct (36.0-46.0) % 35.8 L MCV (80-95) fL 85.0 MCH (27.0-33.0) pg 29.7 MCHC (32.0-36.0) g/dL 34.9 RDW (11.7-14.6) % 12.8 Plt Count (130-400) x1000/uL 285 MPV (8.0-11.0) fL 9.7 Immature Gran % 0.1 Neutrophils % 72.8 Lymphocytes % 20.1 Monocytes % 6.0 Eosinophils % 0.9 Basophils % 0.1 Absolute Neutrophils (1.2-6.7) k/cumm 6.40 Absolute Lymphocytes (1.2-3.4) k/cumm 1.77 Absolute Monocytes (0.11-0.7) k/cumm 0.53 Absolute Eosinophils (0.0-0.7) k/cumm 0.08 Absolute Basophils (0.0-0.2) k/cumm 0.01
[2018-07-10 09:02] LABS: ALT 10 U/L (12-78); AST 10 U/L (15-37); Albumin 3.6 g/dL (3.4-5.0); Alkaline Phosphatase 81 U/L (46-116); Anion Gap 9.3 mmol/L (3-11); BUN 20 mg/dL (7-18); Bilirubin, Total 0.4 mg/dL (0.2-1.0); CO2 27.7 mmol/L (21.0-32.0); CREATININE 0.74 mg/dL (0.55-1.02); Calcium 8.5 mg/dL (8.5-10.1); Chloride 105 mmol/L (98-107); Glucose 110 mg/dL (70-100); Sodium 142 mmol/L (136-145); Total Protein 6.5 g/dL (6.4-8.2)
[2018-07-10] MEDS: Normal Saline 250 ML 500 ML IV (09:02)
[2018-07-10] MEDS: Normal Saline Flush 10 ML SYR IVP (09:03)
--- NOTE | 2018-07-10 09:05 | DI.RAD_ITS ---
SYMPTOM/DIAGNOSIS: LOW ABD PAIN, GI BLEED FLAT AND UPRIGHT ABDOMEN: The bowel gas pattern is unremarkable. There is a normal quantity of stool. There is no evidence of organomegaly. No urinary tract calculi are visible. Scoliosis and aortic calcifications are noted. IMPRESSION: No acute abnormality.
--- NOTE | 2018-07-10 10:14 | DI.VRAD_ITS ---
EXAM: XR Abdomen, 2 Views EXAM DATE/TIME: 07/10/2018 9:06 AM CLINICAL HISTORY: 58 years old, female; Pain; Abdominal pain TECHNIQUE: Imaging protocol: Frontal view of the abdomen/pelvis with upright view of the abdomen. COMPARISON: US ABDOMEN 05/06/2018 4:21 PM FINDINGS: Gastrointestinal tract: Normal. No bowel dilation. Intraperitoneal space: Normal. No free air. Vasculature: Calcification of the abdominal aorta and/or iliac arteries consistent with atherosclerotic vessel disease. One or more calcified pelvic phleboliths. Bones/joints: Levoscoliosis. IMPRESSION: No acute findings. Dictated and Authenticated by: Jaspreet Jack MD. Ordering:YOLANDA Mas MD
[2018-07-10] MEDS: Potassium Chloride Liquid 20 MEQ PKT 40 MEQ PO (10:57)
== END 2018-07-10 11:29 | disposition home or self-care (01) ==
PROVIDERS: Emergency Provider Physician Assistant; PCP Nurse Practitioner
DX: K62.5 Hemorrhage of anus and rectum (principal); K91.840 Postprocedural hemorrhage of a digestive system organ or structure following a digestive system procedure; E87.6 Hypokalemia; I10 Essential (primary) hypertension; J44.9 Chronic obstructive pulmonary disease, unspecified
CPT/HCPCS: 36415; 80053; 93005; 96360; 99285; 74019; 85025; 93010; 99284

== ENCOUNTER → 2018-07-26 10:07 | Outpatient (BNVA) | payer MEDICARE, MEDICAID, SELFPAY | PROVIDERS: PCP Nurse Practitioner; Referring Provider Nurse Practitioner; Visit Provider Surgery | DX: Z48.815 Encounter for surgical aftercare following surgery on the digestive system (principal); K20.9 Esophagitis, unspecified; D12.0 Benign neoplasm of cecum; F17.210 Nicotine dependence, cigarettes, uncomplicated; I10 Essential (primary) hypertension; J44.9 Chronic obstructive pulmonary disease, unspecified | CPT/HCPCS: 99212; 99214 ==

== ENCOUNTER 2018-07-27 14:15 | Outpatient (CLI) | payer MEDICARE, MEDICAID, SELFPAY | END 2018-07-27 14:35 | PROVIDERS: PCP Nurse Practitioner; Visit Provider Nurse Practitioner Adult Health | DX: R20.2 Paresthesia of skin (principal); M79.601 Pain in right arm; M79.602 Pain in left arm | CPT/HCPCS: 95910; 99203; 99214 ==

== ENCOUNTER 2018-08-26 10:40 | Outpatient (CLI) | payer MEDICARE, MEDICAID, SELFPAY ==
[2018-08-26 12:48] LABS: Anion Gap 12.9 mmol/L (3-11); BUN 19 mg/dL (7-18); CO2 28.1 mmol/L (21.0-32.0); CREATININE 0.76 mg/dL (0.55-1.02); Calcium 9.2 mg/dL (8.5-10.1); Chloride 103 mmol/L (98-107); Glucose 98 mg/dL (70-100); Potassium 3.2 mmol/L (3.5-5.1); Sodium 144 mmol/L (136-145)
[2018-08-26 13:03] LABS: TSH 2.44 uIU/mL (0.358-3.74)
== END 2018-08-26 11:00 ==
PROVIDERS: Psychiatry & Neurology Psychiatry; PCP Nurse Practitioner Family; Visit Provider Nurse Practitioner Family
DX: F31.81 Bipolar II disorder (principal); Z79.899 Other long term (current) drug therapy; Z51.81 Encounter for therapeutic drug level monitoring; E87.6 Hypokalemia
CPT/HCPCS: 36415; 80048; 80178; 84443

== ENCOUNTER 2018-11-28 13:02 | Emergency (ER) | payer MEDICARE, MEDICAID, SELFPAY ==
[2018-11-28 13:20] VITALS: BP 154/90; PULSE 107; RESP 16; TEMP 36.7; O2SAT 99
--- NOTE | 2018-11-28 13:39 | ED.GENADUL_ITS ---
Discharge Plan Disposition Patient Disposition: HOME Condition: Good Discharge Details Chief Complaint: Laceration Clinical Impression: Finger laceration Primary Care Provider: Nella Britton ED Provider: Shad Weber Home Meds and New Rx's Prescriptions: No Action Fiber Smooth powder 1 tbs PO PRN RF: 0 lamotrigine 300 mg tablet extended release 24hr 300 mg PO DAILY RF: 0 losartan 50 mg tablet 50 mg PO DAILY RF: 0 omeprazole 40 mg capsule,delayed release(DR/EC) 40 mg PO DAILY RF: 0 albuterol sulfate [ProAir HFA] 90 mcg/actuation HFA aerosol inhaler 2 puff IH Q6H PRNRF: 0 fluticasone propion-salmeterol [Advair HFA] 230-21 mcg/actuation HFA aerosol inhaler 2 puff IH BID RF: 0 simvastatin 20 mg tablet 40 mg PO QPM RF: 0 acetaminophen [Tylenol Extra Strength] 500 mg Tablet 500 mg PO PRN PRNRF: 0 quetiapine [Seroquel] 50 mg Tablet 50 mg PO DAILY AM RF: 0 Discharge Instructions Instructions: Finger Laceration (ED) Additional Instructions: Please leave the dressing on for 24 hours, then you may remove and begin cleaning the wound at least twice a day with soap and water. Continue to apply antibiotic ointment. Do not directly soak the area. Watch for any signs of infection and return if any increasing redness, swelling, pain, drainage. Please return in the next 7 to 10 days to have the sutures removed. If you notice any worsening of your symptoms, or any new symptoms such as vomiting, diarrhea, fever, chills, shortness of breath, chest pain, numbness, weakness, or fainting , please return immediately to the emergency department for reevaluation. Please follow up with your primary care provider as soon as possible for reassessment and reevaluation. As always, it was a pleasure participating in your medical care today. Discharge Data Discharge Date/Time-TO BE ENTERED AT DEPARTURE: 11/28/18 13:56 Medical Decision Making This is a pleasant 58-year-old female who presents for laceration on her distal fingertip secondary to glass from saltshaker when it broke in her hand. Laceration is 1 cm on the tip, neurovascular exam demonstrates notable intactness. Sensation is still intact. Good flexion-extension of the distal tip, no evidence of tendon involvement. Tetanus is up-to-date. The area was cleansed, anesthetized and sutured with 5 sutures. She tolerated this well. Patient was then bandage, splinted and discharged. Patient tolerated procedure well. We discussed red flags for which to return. I have extensively reviewed the treatment plan and discharge instructions with the patient. I have addressed all patient concerns at this time. The patient was made aware of what symptoms to monitor for that would warrant a return to the emergency department. Discussed the plan with the patient, they demonstrate verbal understanding and agreement with our assessment and plan at this time. HPI General Date/Time Provider Initiated Documentation: 11/28/18 13:19 . HPI Narrative: This is a pleasant 58-year-old female who presents for laceration to her dominant right hand on the tip of the index finger. She was hitting a saltshaker on the table and the glass broke and slit the tip of her finger. Her tetanus is up-to-date in the last 5 years. She denies any numbness or tingling. She is on no blood thinners. Aside for the pain in the tip of her finger she has no other complaints. She is able to move her finger well without difficulty. Related Data Home Medications Medication Instructions Recorded Confirmed albuterol sulfate 90 mcg/actuation 2 puff IH Q6H PRN 03/24/18 11/28/18 aerosol inhaler fluticasone propionate-salmeterol 2 puff IH BID 03/24/18 11/28/18 230 mcg-21 mcg/actuation HFA inhaler omeprazole 40 mg capsule,delayed 40 mg PO DAILY 05/19/18 11/28/18 release lamotrigine 300 mg tablet,extended 300 mg PO DAILY 06/04/18 11/28/18 release 24 hr losartan 50 mg tablet 50 mg PO DAILY 06/04/18 11/28/18 acetaminophen [Tylenol Extra 500 mg PO PRN PRN 06/10/18 11/28/18 Strength] psyllium 1 tbs PO PRN gm 07/27/18 11/28/18 simvastatin 20 mg tablet 40 mg PO QPM tab 07/27/18 11/28/18 quetiapine [Seroquel] 50 mg PO DAILY AM 11/28/18 11/28/18 Allergies Allergy/AdvReac Type Severity Reaction Status Date / Time No Known Allergies Allergy Verified 07/27/18 14:01 General Stated Complaint: Laceration GRIS: 3 Review of Systems Review of Systems All systems reviewed & are unremarkable except as noted in HPI and below PFSH Medical History (Updated 07/28/18 @ 16:10 by Alayna Jorge RN) Abnormal colonoscopy (Resolved) Bipolar 1 disorder (Acute) COPD (chronic obstructive pulmonary disease) (Chronic) Dizziness (Acute) Dysphagia (Acute) Endometrial thickening on ultrasound (Acute) GERD (gastroesophageal reflux disease) (Chronic) Hematuria (Acute) Hepatic cyst (Acute) Hyperlipemia (Acute) Hypertension (Chronic) Hypokalemia (Acute) Low back pain (Acute) Metabolic syndrome X (Chronic) Palpitations (Acute) Post traumatic stress disorder (Chronic) Restless legs (Acute) RUQ pain (Acute) Scoliosis (Acute) Tobacco use (Chronic) Tubular adenoma of colon (Resolved) Surgical History (Updated 07/28/18 @ 16:12 by Alayna Jorge RN) History of esophagogastroduodenoscopy (EGD) (Inactive) Hx of cystoscopy (Acute) Social History Smoking/Tobacco Use Status: Current every day Tobacco Type: cigarettes Alcohol Intake: never Drug use: Occasionally Substance use type: marijuana Do you feel safe at home: Yes Do you feel safe in your relationship?: Yes Exam Narrative Exam Narrative: 1.Const: Well-nourished, Well-developed, appearing stated age 2.Eyes: PERRL, no conjunctival injection, and symmetrical lids. 3.ENT: Atraumatic external nose and ears. Moist MM. Neck: Symmetric, trachea midline, No thyromegaly. 4.CVS: +S1/S2, No murmurs or gallops. Peripheral pulses 2+ and equal in all extremities. Brisk capillary refill in all extremities. 5.RESP: Unlabored respiratory effort. Clear to auscultation bilaterally. No wheezes rales or rhonchi 6.GI: Soft, Nontender/Nondistended, No hepatosplenomegaly. No guarding or rebound. 7.MSK: Normocephalic/Atraumatic, Extremities w/o deformity or ttp No cyanosis or clubbing, Normal movement of all extremities. Normal flexion and extension of the finger, no weakness. No evidence of tendon disruption 8.Skin: Warm, Dry. 1 cm linear laceration over the palmar aspect of the distal tip of the index finger on the right hand. Mild active bleeding. No evidence of deep tendon involvement. Normal flexion and extension strength. Sensation is intact in the distal tip in spite of the laceration. Difficult to appreciate two-point discrimination secondary to the patient's pain. No other significant abnormalities. 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 Sensation grossly intact, no focal neurologic deficits. 10.Psych: (AAO) x3. Appropriate mood and affect Course Vital Signs Temperature 36.7 C 11/28/18 13:20 Pulse 107 H 11/28/18 13:20 Respiratory Rate 16 11/28/18 13:20 Blood Pressure 154/90 H 11/28/18 13:20 Pulse Oximetry 99 11/28/18 13:20 Temperature 36.7 C 11/28/18 13:20 Temperature Source Tympanic 11/28/18 13:20 Pulse 107 H 11/28/18 13:20 Respiratory Rate 16 11/28/18 13:20 Blood Pressure 154/90 H 11/28/18 13:20 Blood Pressure Position Sitting 11/28/18 13:20 Pulse Oximetry 99 11/28/18 13:20 Oxygen Delivery Method Room Air 11/28/18 13:20 Oxygen Flow Rate 0 11/28/18 13:20 Procedures Laceration Laceration 1: Site: hand (index finger) Side (If applicable): right Size (cm): 1 Description: linear Depth: simple, single layer Local Anesthetic: Lidocaine 1% Amount of anesthesia used (mL): 2 Pre-repair: wound explored, irrigated extensively and deep structures intact Skin layer closed with: nylon Size (cm): 4-0 Number of sutures: 5 Technique: simple, interrupted
== END 2018-11-28 13:56 | disposition home or self-care (01) ==
PROVIDERS: Emergency Provider Student in an Organized Health Care Education/Training Program; PCP Nurse Practitioner Family
DX: S61.210A Laceration without foreign body of right index finger without damage to nail, initial encounter (principal); W25.XXXA Contact with sharp glass, initial encounter; J44.9 Chronic obstructive pulmonary disease, unspecified; F17.210 Nicotine dependence, cigarettes, uncomplicated; I10 Essential (primary) hypertension
CPT/HCPCS: 12001

== ENCOUNTER 2019-02-08 12:42 | Outpatient (REF) | payer MEDICARE, MEDICAID, SELFPAY ==
[2019-02-08 21:33] LABS: Abs Immature Grans 0.01 k/cumm (0.0-0.09); Absolute Basophil Count 0.02 k/cumm (0.0-0.2); Absolute Eosinophil Count 0.07 k/cumm (0.0-0.7); Absolute Lymphocyte Count 2.65 k/cumm (1.2-3.4); Absolute Monocyte Count 0.57 k/cumm (0.11-0.7); Absolute Neutrophil Count 6.11 k/cumm (1.2-6.7); Basophils % 0.2; Eosinophils % 0.7; HCT 42.5 % (36.0-46.0); HGB 14.2 g/dL (12.0-15.5); Immature Grans % 0.1; Lymphocytes % 28.1; Mean Corp. HGB Concentration 33.4 g/dL (32.0-36.0); Mean Corpuscular Hemoglobin 29.2 pg (27.0-33.0); Mean Corpuscular Volume 87.3 fL (80-95); Mean Platelet Volume 11.4 fL (8.0-11.0); Neutrophils % 64.9; Platelet Count 300 x1000/uL (130-400); RBC 4.87 m/cumm (4.00-5.20); RBC Distribution Width 13.6 % (11.7-14.6); White Blood Cell Count 9.43 k/cumm (4.4-10.8)
[2019-02-08 21:41] LABS: Anion Gap 11.6 mmol/L (3-11); BUN 20 mg/dL (7-18); CO2 27.4 mmol/L (21.0-32.0); CREATININE 0.76 mg/dL (0.55-1.02); Calcium 9.4 mg/dL (8.5-10.1); Chloride 104 mmol/L (98-107); Glucose 115 mg/dL (70-100); Potassium 3.9 mmol/L (3.5-5.1); Sodium 143 mmol/L (136-145)
== END 2019-02-08 13:02 ==
LOC: NCHCN 12:42
PROVIDERS: PCP Nurse Practitioner Family; Visit Provider Nurse Practitioner Family
DX: R53.83 Other fatigue (principal); E87.6 Hypokalemia
CPT/HCPCS: 80048; 85025

== ENCOUNTER 2019-05-19 11:21 | Outpatient (REF) | payer MEDICARE, MEDICAID, SELFPAY ==
[2019-05-19 21:46] LABS: ALT 14 U/L (14-59); AST 13 U/L (15-37); Albumin 4.2 g/dL (3.4-5.0); Alkaline Phosphatase 108 U/L (46-116); Anion Gap 8.4 mmol/L (3-11); BUN 18 mg/dL (7-18); Bilirubin, Total 0.3 mg/dL (0.2-1.0); CO2 31.6 mmol/L (21.0-32.0); Calcium 9.2 mg/dL (8.5-10.1); Chloride 105 mmol/L (98-107); Glucose 79 mg/dL (74-106); Potassium 4.7 mmol/L (3.5-5.1); Sodium 145 mmol/L (136-145); Total Protein 7.4 g/dL (6.4-8.2)
== END 2019-05-19 11:41 ==
LOC: NCHCN 11:21
PROVIDERS: PCP Nurse Practitioner Family; Visit Provider Nurse Practitioner Family
DX: R53.83 Other fatigue (principal); E87.6 Hypokalemia; K76.89 Other specified diseases of liver
CPT/HCPCS: 80053; 84443

== ENCOUNTER 2020-02-06 16:06 | Outpatient (REF) | payer MEDICARE, MEDICAID, SELFPAY ==
[2020-02-06 21:22] LABS: Bacteria Rare HPF (Negative); C & S Indicated? No; Casts Negative LPF (Negative); Crystals Negative HPF (Negative); Epithelial Cells Few HPF (Negative); Mucus Negative (Negative)
== END 2020-02-06 16:26 ==
LOC: NCHCN 16:06
PROVIDERS: PCP Nurse Practitioner Family; Visit Provider Nurse Practitioner Family
DX: R31.9 Hematuria, unspecified (principal); E88.1 Lipodystrophy, not elsewhere classified
CPT/HCPCS: 81015

== ENCOUNTER 2020-03-23 15:12 | Outpatient (REF) | payer MEDICARE, MEDICAID, SELFPAY ==
[2020-03-23 21:33] LABS: Calculated LDL 108 mg/dL (<100); Cholesterol 168 mg/dL (<200); HDL Cholesterol 37 mg/dL (40-60); Triglyceride 119 mg/dL (<150)
[2020-03-23 21:39] LABS: Hemoglobin A1C 5.8 % (<5.7)
== END 2020-03-23 15:32 ==
LOC: NCHCN 15:12
PROVIDERS: PCP Nurse Practitioner Family; Visit Provider Nurse Practitioner Family
DX: R73.03 Prediabetes (principal); E78.5 Hyperlipidemia, unspecified
CPT/HCPCS: 80061; 83036

== ENCOUNTER 2020-06-07 18:44 | Outpatient (REF) | payer MEDICARE, MEDICAID, SELFPAY ==
[2020-06-07 21:21] LABS: ALT 14 U/L (14-59); AST 13 U/L (15-37); Albumin 4.1 g/dL (3.4-5.0); Alkaline Phosphatase 95 U/L (46-116); Anion Gap 6.5 mmol/L (3-11); BUN 17 mg/dL (7-18); Bilirubin, Total 0.3 mg/dL (0.2-1.0); CO2 30.5 mmol/L (21.0-32.0); CREATININE 0.7 mg/dL (0.55-1.02); Calcium 8.9 mg/dL (8.5-10.1); Chloride 105 mmol/L (98-107); Glucose 105 mg/dL (74-106); Sodium 142 mmol/L (136-145); Total Protein 7.2 g/dL (6.4-8.2)
== END 2020-06-07 18:45 | disposition home or self-care (01) ==
LOC: NCHCN 18:44
PROVIDERS: PCP Nurse Practitioner Family; Visit Provider Nurse Practitioner Family
DX: I10 Essential (primary) hypertension (principal)
CPT/HCPCS: 80053

== ENCOUNTER 2020-08-02 20:01 | Outpatient (REF) | payer MEDICARE, MEDICAID, SELFPAY ==
[2020-08-02 20:06] LABS: ALT 14 U/L (14-59); AST 13 U/L (15-37); Albumin 4.1 g/dL (3.4-5.0); Alkaline Phosphatase 96 U/L (46-116); Anion Gap 10.7 mmol/L (3-11); BUN 21 mg/dL (7-18); Bilirubin, Total 0.3 mg/dL (0.2-1.0); CO2 27.3 mmol/L (21.0-32.0); CREATININE 0.9 mg/dL (0.55-1.02); Calculated LDL 74 mg/dL (<100); Chloride 107 mmol/L (98-107); Cholesterol 131 mg/dL (<200); Glucose 104 mg/dL (74-106); HDL Cholesterol 45 mg/dL (40-60); Potassium 3.8 mmol/L (3.5-5.1); Sodium 145 mmol/L (136-145); Triglyceride 64 mg/dL (<150)
== END 2020-08-02 20:02 | disposition home or self-care (01) ==
LOC: NCHCN 20:01
PROVIDERS: PCP Nurse Practitioner Family; Visit Provider Nurse Practitioner Family
DX: E78.5 Hyperlipidemia, unspecified (principal)
CPT/HCPCS: 80053; 80061

== ENCOUNTER 2020-08-30 14:09 | Outpatient (REF) | payer MEDICARE, MEDICAID, SELFPAY ==
[2020-08-30 21:02] LABS: Abs Immature Grans 0.03 10^3/uL (0.0-0.06); Absolute Basophil Count 0.04 10^3/uL (0.0-0.2); Absolute Eosinophil Count 0.06 10^3/uL (0.0-0.7); Absolute Lymphocyte Count 3.03 10^3/uL (1.2-3.4); Absolute Monocyte Count 0.66 10^3/uL (0.1-0.8); Absolute Neutrophil Count 6.41 10^3/uL (1.2-6.7); Basophils % 0.4; Eosinophils % 0.6; HCT 40.4 % (36.0-46.0); HGB 13.3 g/dL (11.2-15.7); Immature Grans % 0.3; Lymphocytes % 29.6; MCH 29.5 pg (27.0-33.0); MCHC 32.9 % (32.0-36.0); MCV 89.6 fL (80-95); MPV 10.9 fL (8.0-11.0); Monocytes % 6.5; Neutrophils % 62.6; Nucleated RBC 0 %; Platelet Count 279 10^3/uL (130-400); RBC 4.51 10^6/uL (3.93-5.22); RDW-SD 42.4 fL; WBC 10.23 10^3/uL (4.4-10.8)
[2020-08-30 22:30] LABS: ALT 16 U/L (14-59); AST 15 U/L (15-37); Albumin 4.2 g/dL (3.4-5.0); Alkaline Phosphatase 102 U/L (46-116); Anion Gap 9.9 mmol/L (3-11); BUN 24 mg/dL (7-18); Bilirubin, Total 0.3 mg/dL (0.2-1.0); CO2 27.1 mmol/L (21.0-32.0); CREATININE 0.9 mg/dL (0.55-1.02); Calcium 8.5 mg/dL (8.5-10.1); Chloride 107 mmol/L (98-107); Glucose 115 mg/dL (74-106); Potassium 3.8 mmol/L (3.5-5.1); Sodium 144 mmol/L (136-145); Total Protein 7.1 g/dL (6.4-8.2)
== END 2020-08-30 14:10 | disposition home or self-care (01) ==
LOC: NCHCN 14:09
PROVIDERS: PCP Nurse Practitioner Family; Visit Provider Nurse Practitioner Family
DX: R10.32 Left lower quadrant pain (principal)
CPT/HCPCS: 80053; 85025